=== PATIENT | female | born 1990 ===

== ENCOUNTER 2023-10-01 20:23 | Inpatient (IN) | payer OTHER ==
[2023-10-01] MEDS ORDERED: Sodium Chloride 0.9% 20 ML SDV IV PRN (21:22)
[2023-10-01] MEDS ORDERED: Tranexamic Acid IN NACL,ISO-OS 1,000 MG in Premix Bag 1 BAG IV PRN (21:22)
[2023-10-01] MEDS ORDERED: Lidocaine 1% 50 ML MDV INJECT PRN (21:22)
[2023-10-01] MEDS ORDERED: Carboprost Tromethamine 250 MCG/1 mL Vial IM PRN (21:22)
[2023-10-01] MEDS ORDERED: Misoprostol 25 MCG (1/4 of 100 MCG) Tab VAG PRN (21:22)
[2023-10-01] MEDS ORDERED: Methylergonovine 0.2 MG/1 ML Amp IM PRN (21:22)
[2023-10-01] MEDS ORDERED: Water For Irrigation,Sterile 1,000 ML Container IRR PRN (21:22)
[2023-10-01] MEDS ORDERED: Terbutaline 1 MG/ML SDV SUBCUT PRN (21:22)
[2023-10-01] MEDS ORDERED: Nalbuphine 10 MG/0.5 ML Syringe IVPUSH PRN (21:22)
[2023-10-01] MEDS ORDERED: Sodium Chloride 0.9% 10 ML Syringe FLUSH PRN (21:22)
[2023-10-01] MEDS ORDERED: Misoprostol 200 MCG Tab PO PRN (21:22)
[2023-10-01] MEDS ORDERED: Sodium Chloride 0.9% 2.5 ML Syringe FLUSH PRN (21:22)
[2023-10-01] MEDS ORDERED: Oxytocin/0.9 % Sodium Chloride 30 UNIT/500 ML BAG IV SCH (21:30)
[2023-10-01] MEDS ORDERED: Misoprostol 25 MCG (1/4 of 100 MCG) Tab PO ONE (21:40)
[2023-10-01] MEDS ORDERED: Misoprostol 25 MCG (1/4 of 100 MCG) Tab PO PRN (21:44)
[2023-10-01 21:49] LABS: HEMOGLOBIN 10.5 g/dL (12.0-16.0); MEAN CORPUSCULAR HEMOGLOBIN 25.4 pg (28.0-32.0); MEAN CORPUSCULAR HGB CONC 32.8 g/dL (32.0-36.0); MEAN CORPUSCULAR VOLUME 77.5 fL (83.0-99.0); MEAN PLATELET VOLUME 10.6 fL (9.4-12.3); PLATELET COUNT,PLT 320 K/uL (150-400); RED BLOOD CELL COUNT 4.13 M/uL (4.10-5.30); WHITE BLOOD CELL COUNT,WBC 10.19 K/uL (3.9-11.3)
[2023-10-01] MEDS: Lactated Ringers 1,000 ML IV SCH (22:53)
[2023-10-01] MEDS: Clindamycin Phosphate in D5W 900 MG in Premix Bag 1 BAG IV SCH (22:53)
[2023-10-01] MEDS: Misoprostol 25 MCG (1/4 of 100 MCG) Tab PO ONE (22:53)
[2023-10-01] MEDS: Misoprostol 25 MCG (1/4 of 100 MCG) Tab VAG PRN (22:54)
[2023-10-02] MEDS ORDERED: ePHEDrine 50 MG/ML SDV IVPUSH PRN ×2 (02:49)
[2023-10-02] MEDS ORDERED: Phenylephrine HCl 0.5 MG/5 ML AMP IVPUSH PRN (02:49)
[2023-10-02] MEDS ORDERED: Ropivacaine HCl/PF 400 MG in Premix Bag 1 BAG EPIDUR SCH (03:00)
[2023-10-02] MEDS: Oxytocin/0.9 % Sodium Chloride 30 UNIT/500 ML BAG IV SCH (03:16)
[2023-10-02] MEDS ORDERED: Docusate Sodium 100 MG Cap PO PRN (03:38)
[2023-10-02] MEDS ORDERED: Lanolin 100% Cream 7 GM Tube TOP PRN (03:38)
[2023-10-02] MEDS ORDERED: Acetaminophen 500 MG Tab PO PRN (03:38)
[2023-10-02] MEDS: Witch Hazel Medicated Pads 40/Jar TOP PRN (06:59)
[2023-10-02] MEDS: Benzocaine/Menthol 20%-0.5% Spray 78 GM Cannister TOP PRN (07:00)
[2023-10-02] MEDS: fentaNYL 100 MCG/2 ML SDV ONE (08:00)
[2023-10-02] MEDS: Bupivacaine 0.25% 10 ML SDV ONE (08:00)
[2023-10-02] MEDS: Ibuprofen 800 MG Tab PO PRN (19:39)
[2023-10-03 06:13] LABS: HEMATOCRIT 33.5 % (37.0-47.0); HEMOGLOBIN 10.7 g/dL (12.0-16.0)
== END 2023-10-03 21:17 | disposition home or self-care (01) | DRG 807 ==
LOC: MW.OBCHECK 20:23 → MW.OB 20:24 → MW.OBCHECK 21:22 → MW.OB 21:22 → OBSVTOIN 10-02 03:13 → MW.OB 10-02 08:51
PROVIDERS: ADMIT Obstetrics & Gynecology Obstetrics; ATTEND Obstetrics & Gynecology Obstetrics
PROC: 10E0XZZ Delivery of Products of Conception, External Approach (ICD-10-PCS; principal; 2023-10-02)
PROC: 3E0P7VZ Introduction of Hormone into Female Reproductive, Via Natural or Artificial Opening (ICD-10-PCS; 2023-10-02)
PROC: 3E0R3BZ Introduction of Anesthetic Agent into Spinal Canal, Percutaneous Approach (ICD-10-PCS; 2023-10-02)
PROC: 00HU33Z Insertion of Infusion Device into Spinal Canal, Percutaneous Approach (ICD-10-PCS; 2023-10-02)
DX: O99.824 Streptococcus B carrier state complicating childbirth (principal); Z37.0 Single live birth; O69.81X0 Labor and delivery complicated by cord around neck, without compression, not applicable or unspecified; Z3A.39 39 weeks gestation of pregnancy; Z88.1 Allergy status to other antibiotic agents
CPT/HCPCS: 36415; 59025; 59409; 85014; 85018; 85027; 86592; 86762; 86850; 86900; 86901; A9270-GY; J0736; J2590; J3010; J3490; J7120